=== PATIENT | female | born 1995 | race African-American/Black ===

== ENCOUNTER 2024-07-26 21:24 | Emergency (ER) | payer OTHER ==
[~2024-07-26] VITALS: Ht 167.6 cm; Wt 68.2 kg
[2024-07-26 21:49] VITALS: TEMP 99.3
[2024-07-26 22:52] LABS: INFLUENZA A-RTPCR,COMBO POSITIVE (NEGATIVE); INFLUENZA B-RTPCR,COMBO NEGATIVE (NEGATIVE); RESPIRATORY SYNCYTIAL VRS-PCR NEGATIVE (NEGATIVE); SARS COVID19 RTPCR, COMBO NEGATIVE (NEGATIVE)
[2024-07-26] MEDS: ONDANSETRON 4 MG TABLET PO ONE (23:54)
[2024-07-26] MEDS: ACETAMINOPHEN 500 MG TABLET PO ONE (23:54)
[2024-07-26] MEDS: IBUPROFEN 400 MG TABLET PO ONE (23:54)
[2024-07-27] VITALS: BP 100/71; PULSE 97; RESP 18; O2SAT 97
[2024-07-27] MEDS ORDERED: ONDA-104 PO
== END 2024-07-27 00:11 | disposition home or self-care (01) ==
LOC: EMS 21:24
DX: J10.1 Influenza due to other identified influenza virus with other respiratory manifestations (principal); F12.90 Cannabis use, unspecified, uncomplicated; Z20.822 Contact with and (suspected) exposure to COVID-19
CPT/HCPCS: 99284; 0241U; 71046; Q0162